=== PATIENT | female | born 2000 | race Two or more races ===

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

== ENCOUNTER → 2022-09-04 10:00 | Outpatient (CLI) | payer OTHER, SELFPAY ==
[2022-09-04 14:55] LABS: Basophils % 0.4 % (0.1-2.0); Eosinophils # 0.1 K/mm3 (0.0-0.4); Eosinophils % 1.2 % (0.1-12.0); Hematocrit 40.6 % (37.0-47.0); Lymphocytes # 2.1 K/mm3 (0.7-4.5); Lymphocytes % 32.6 % (10-50); Mean Corpuscular Hemoglobin 27.8 pg (27.0-31.2); Mean Corpuscular Volume 86.8 fl (81-99); Mean Platelet Volume 8.7 fl (7.4-10.4); Monocytes # 0.4 K/mm3 (0.1-1.0); Monocytes % 5.3 % (1.7-9.3); Neutrophils # 3.9 K/mm3 (1.8-7.8); Neutrophils % 60.4 % (37.0-80.0); Platelet Count 352 K/mm3 (142-424); Red Blood Count 4.67 M/mm3 (4.20-5.40); Red Cell Distribution Width 14.3 % (11.5-17.5); White Blood Count 6.5 K/mm3 (4.5-13.0)
[2022-09-04 15:24] LABS: Alanine Aminotransferase 18 U/L (12-78); Albumin Level 4.5 g/dl (3.5-5.0); Albumin/Globulin Ratio 1.6 (1.1-1.8); Alkaline Phosphatase 123 U/L (38-126); Anion Gap 14.2 mEq/L (5-15); Aspartate Amino Transferase 29 U/L (14-36); Bilirubin,Total 0.3 mg/dl (0.2-1.3); Blood Urea Nitrogen 11 mg/dl (7-17); Calcium 9.8 mg/dl (8.4-10.2); Carbon Dioxide 24 mmol/L (22.0-30.0); Chloride 106 mmol/L (98-107); Chol/HDL Ratio 2.9 (1-3.5); Cholesterol 163 mg/dl (140-200); Estimated Glomerular Filt Rate 127 ml/min (>60); GFR (African American) 154 ML/MIN (>60); Globulin 2.8 g/dL (1.3-3.2); Glucose 90 mg/dl (74-100); HDL Cholesterol 57 mg/dl (40-60); Potassium 5.2 mmoL/L (3.5-5.1); Sodium 139 mmol/L (136-145); Total Protein,Serum 7.3 g/dl (6.3-8.2); Triglycerides 189 mg/dl (30-150); VLDL Cholesterol 38 mg/dL (0-40)
[2022-09-04 15:27] LABS: Hemoglobin A1C 5.6 % (4.0-6.0)
[2022-09-04 15:35] LABS: 25-OH Vitamin D, Total 23.9 ng/mL (30-100)
[2022-09-04 15:40] LABS: Direct LDL Cholesterol 74.67 mg/dL (100-129)
[2022-09-04 15:50] LABS: Thyroid Stimulating Hormone 0.97 uIU/mL (0.465-4.68)
== END ==
PROVIDERS: PCP Student in an Organized Health Care Education/Training Program; Visit Provider Student in an Organized Health Care Education/Training Program
DX: Z00.00 Encounter for general adult medical examination without abnormal findings (principal); N92.0 Excessive and frequent menstruation with regular cycle; E55.9 Vitamin D deficiency, unspecified; E87.5 Hyperkalemia
CPT/HCPCS: 80053; 80061; 82306; 83036; 84443; 85025

== ENCOUNTER → 2022-11-05 10:00 | Outpatient (CLI) | payer OTHER, SELFPAY ==
--- NOTE | 2022-11-05 14:00 | US_ITS ---
FINAL REPORT CLINICAL HISTORY: abnormal uterine bleeding FINDINGS: Transvaginal sonographic images of the pelvis were obtained. The uterus is retroverted. There is a heterogeneous endometrial stripe measuring 1.5 cm. The ovaries are unremarkable. There is trace free fluid in the pelvis, probably physiologic. IMPRESSION: Endometrial thickening of uncertain significance, may be physiologic in a reproductive age patient. Reviewed, Interpreted and Dictated by Jonny Benton MD Transcribed by Bhavani Leroy Authenticated and [facility]
== END ==
PROVIDERS: PCP Student in an Organized Health Care Education/Training Program; Visit Provider Obstetrics & Gynecology
DX: N93.9 Abnormal uterine and vaginal bleeding, unspecified (principal)
CPT/HCPCS: 76830

== ENCOUNTER → 2023-01-21 11:03 | Outpatient (CLI) | payer OTHER, SELFPAY ==
--- NOTE | 2023-01-21 11:22 | XR_ITS ---
FINAL REPORT CLINICAL HISTORY: SOB FINDINGS: Two views of the chest were obtained. The heart size and pulmonary vascularity are within normal limits. The mediastinum is normal. No acute pulmonary abnormality is identified. There is no pneumothorax. The bony thorax is intact. IMPRESSION: No active cardiopulmonary disease. Reviewed, Interpreted and Dictated by Shawn Mccoy III, MD Transcribed by Cesia Houston Authenticated and [facility]
[2023-01-21 12:35] LABS: Basophils % 0.5 % (0.1-2.0); Eosinophils # 0.1 K/mm3 (0.0-0.4); Eosinophils % 1.2 % (0.1-12.0); Hematocrit 41.6 % (37.0-47.0); Hemoglobin 13.3 g/dL (12.2-16.2); Lymphocytes # 2.3 K/mm3 (0.7-4.5); Lymphocytes % 38.5 % (10-50); Mean Corpuscular HGB Conc 31.9 g/dL (31.8-35.4); Mean Corpuscular Hemoglobin 27.5 pg (27.0-31.2); Mean Corpuscular Volume 86.3 fl (81-99); Mean Platelet Volume 7.7 fl (7.4-10.4); Monocytes # 0.3 K/mm3 (0.1-1.0); Monocytes % 5.2 % (1.7-9.3); Neutrophils # 3.2 K/mm3 (1.8-7.8); Neutrophils % 54.6 % (37.0-80.0); Platelet Count 293 K/mm3 (142-424); Red Blood Count 4.82 M/mm3 (4.20-5.40); Red Cell Distribution Width 14.4 % (11.5-17.5); White Blood Count 5.9 K/mm3 (4.5-13.0)
[2023-01-26 03:42] LABS: D001-IgE D pteronyssinus <0.10 kU/L (Class 0); D002-IgE D farinae <0.10 kU/L (Class 0); E001-IgE Cat Dander <0.10 kU/L (Class 0); E005-IgE Dog Dander <0.10 kU/L (Class 0); E072-IgE Mouse Urine <0.10 kU/L (Class 0); G006-IgE Timothy Grass 0.11 kU/L (Class 0/I); Immunoglobulin E, Total 116 IU/mL (6-495); M001-IgE Penicillium chrysogen <0.10 kU/L (Class 0); M002-IgE Cladosporium herbarum <0.10 kU/L (Class 0); M003-IgE Aspergillus fumigatus 0.13 kU/L (Class 0/I); M006-IgE Alternaria alternata <0.10 kU/L (Class 0); T001-IgE Maple/Box Elder <0.10 kU/L (Class 0); T003-IgE Common Silver Birch <0.10 kU/L (Class 0); T006-IgE Cedar, Mountain 0.13 kU/L (Class 0/I); T007-IgE Oak, White 0.11 kU/L (Class 0/I); T008-IgE Elm, American <0.10 kU/L (Class 0); T010-IgE Walnut <0.10 kU/L (Class 0); T011-IgE Maple Leaf Sycamore <0.10 kU/L (Class 0); T014-IgE Cottonwood <0.10 kU/L (Class 0); T015-IgE Ash, White <0.10 kU/L (Class 0); T022-IgE Pecan, Hickory <0.10 kU/L (Class 0); T070-IgE White Mulberry <0.10 kU/L (Class 0); W001-IgE Ragweed, Short <0.10 kU/L (Class 0); W011-IgE Thistle, Russian <0.10 kU/L (Class 0); W014-IgE Pigweed, Common <0.10 kU/L (Class 0); W018-IgE Sheep Sorrel <0.10 kU/L (Class 0)
== END ==
PROVIDERS: PCP Emergency Medicine; Visit Provider Internal Medicine Pulmonary Disease
DX: R06.02 Shortness of breath (principal); J45.909 Unspecified asthma, uncomplicated; J30.9 Allergic rhinitis, unspecified
CPT/HCPCS: 36415; 71046; 82785; 85025; 86003

== ENCOUNTER → 2023-01-29 13:27 | Outpatient (CLI) | payer OTHER, SELFPAY | PROVIDERS: PCP Emergency Medicine; Visit Provider Internal Medicine Pulmonary Disease | DX: R06.02 Shortness of breath (principal) | CPT/HCPCS: 94762 ==

== ENCOUNTER → 2023-03-26 14:32 | Outpatient (CLI) | payer OTHER, SELFPAY | PROVIDERS: PCP Emergency Medicine; Visit Provider Internal Medicine Pulmonary Disease | DX: R06.02 Shortness of breath (principal); R06.09 Other forms of dyspnea | CPT/HCPCS: 94070; 95070; J7674 ==

== ENCOUNTER → 2023-08-18 11:23 | Outpatient (CLI) | payer OTHER, SELFPAY | PROVIDERS: PCP Student in an Organized Health Care Education/Training Program; Visit Provider Student in an Organized Health Care Education/Training Program | DX: M54.9 Dorsalgia, unspecified (principal) | CPT/HCPCS: 87086 ==

== ENCOUNTER → 2023-08-28 08:39 | Outpatient (CLI) | payer OTHER, SELFPAY | PROVIDERS: PCP Student in an Organized Health Care Education/Training Program; Visit Provider Student in an Organized Health Care Education/Training Program | DX: R11.0 Nausea (principal); B96.89 Other specified bacterial agents as the cause of diseases classified elsewhere | CPT/HCPCS: 87086 ==

== ENCOUNTER 2023-09-05 23:56 | Emergency (ER) | payer OTHER, SELFPAY ==
[2023-09-05 23:57] VITALS: BP 164/96; PULSE 110; RESP 16; TEMP 37; O2SAT 100; BMI 31.1
[2023-09-06 00:12] LABS: Coronavirus 19, PCR Not Detected (NotDetected); Influenza A, PCR Not Detected (NotDetected); Influenza B, PCR Not Detected (NotDetected)
[2023-09-06 00:22] LABS: Strep Scrn Group A (Rapid) Negative (Negative)
--- NOTE | 2023-09-06 00:37 | HMH.EDGENADL ---
Discharge Plan Disposition Patient Disposition: Home, Self-Care Condition: Good Prescriptions Prescriptions: New amoxicillin-pot clavulanate 875-125 mg tablet 1 tab PO BID Qty: 20 0RF No Action norethindrone-e.estradiol-iron [ (28)] 1.5 mg-30 mcg (21)/75 mg (7) tablet 1 tab PO DAILY Qty: 84 3RF fluticasone propionate [Flonase Allergy Relief] 50 mcg/actuation spray,suspension 1 spray intranasal BID 90 Days Qty: 16 3RF Rx Instructions: administer into each nostril ondansetron HCl 4 mg tablet 4 mg PO Q8H PRN (Reason: nausea and vomiting) Qty: 10 0RF albuterol sulfate [Proventil HFA] 90 mcg/actuation HFA aerosol inhaler 2 puff INHALATION Q6H Qty: 8.5 10RF Rx Instructions: administer with spacer cholecalciferol (vitamin D3) 25 mcg (1,000 unit) capsule 25 mcg PO DAILY Qty: 90 3RF Referrals Follow up/Referrals: Bety Key PA [Primary Care Provider] - See instructions Activity Restrictions/Add. Instructions Additional Instructions/Restrictions: You were evaluated in the emergency department today. You tested negative for strep. Your COVID and flu test are pending. You have an ear infection. We are providing you with an antibiotic for this. Take Tylenol and ibuprofen every 4-6 hours at home as needed for pain and fever. Return to the emergency department for new or worsening symptoms. Follow-up with your primary care provider over the next 3 days for reassessment. Clinical Impressions Clinical Impression: Upper respiratory infection, viral, Acute left otitis media Instructions Patient Instructions: DI for Otitis Media (Middle Ear Infection)-Child, DI for Viral Syndrome Discharge ED Provider: Shirley Barry General Adult HPI General Chief complaint: Upper Respiratory Infection Stated complaint: sore throat, cough, ear pain Time Seen by Provider: 09/06/23 00:01 Mode of Arrival: Ambulatory Source of Information: Patient Limitations: No Limitations Description of Symptoms (Recalled from ER Triage Doc. by RN): Presents to ED with c/o sore throat, runny nose, and ear pain that began last night. 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 Patient reports taking abx at 1600 that she brought with her from [place] but is unsure of the name. History of Present Illness HPI narrative: This patient is a 23-year-old female presenting to the emergency department for evaluation with concern for cough, congestion, and left ear pain that started on Thursday. Patient also complains of headaches and bodyaches. No other concerns noted at this time. She took Tylenol and ibuprofen in the morning, but has not had medication since then. Related Data Previous Rx's Medication Instructions Recorded albuterol sulfate 90 mcg/actuation 2 puff inhalation Q6H #8.5 grams 09/04/22 aerosol inhaler (Proventil HFA) cholecalciferol (vitamin D3) 25 25 mcg PO DAILY #90 caps 09/05/22 mcg (1,000 unit) capsule norethindrone 1.5 mg-ethinyl 1 tab PO DAILY #84 tabs 10/08/22 estradiol 30 mcg(21)/iron 75 mg(7) tablet (Junel FE 1.5/30 (28)) fluticasone propionate 50 1 spray intranasal BID allergy 03/26/23 mcg/actuation nasal symptoms 90 days #16 grams spray,suspension (Flonase Allergy Relief) ondansetron HCl 4 mg tablet 4 mg PO Q8H PRN nausea and 08/18/23 vomiting #10 tabs amoxicillin 875 mg-potassium 1 tab PO BID #20 tabs 09/06/23 clavulanate 125 mg tablet Allergies Allergy/AdvReac Type Severity Reaction Status Date / Time No Known Allergies Allergy Verified 08/28/23 09:55 [facility] Disclaimer: The information contained in this section may have been updated after the patient was seen, as this information can be updated by other users. Medical History Abnormal uterine bleeding Allergic rhinitis Asthma Dyspnea on exertion History of 2019 novel coronavirus disease (COVID-19) Loud snoring Nocturnal hypoxia Shortness of Breath
--- NOTE | 2023-09-06 00:41 | PC.NURSE ---
Rounded on patient; call light within reach of patient
[2023-09-06 00:49] VITALS: BP 145/88; PULSE 108; RESP 16; TEMP 37; O2SAT 99
== END 2023-09-06 00:51 | disposition home or self-care (01) ==
PROVIDERS: Emergency Provider Emergency Medicine; PCP Student in an Organized Health Care Education/Training Program
DX: H66.92 Otitis media, unspecified, left ear (principal); R51.9 Headache, unspecified; R05.9 Cough, unspecified; J06.9 Acute upper respiratory infection, unspecified; R07.0 Pain in throat; R09.81 Nasal congestion; J45.909 Unspecified asthma, uncomplicated
CPT/HCPCS: 87430; 87636; 99283

== ENCOUNTER → 2023-09-07 23:47 | Outpatient (CLI) | payer OTHER, SELFPAY | PROVIDERS: PCP Student in an Organized Health Care Education/Training Program; Visit Provider Student in an Organized Health Care Education/Training Program | DX: R30.0 Dysuria (principal) | CPT/HCPCS: 87086 ==

== ENCOUNTER 2024-02-11 10:07 | Outpatient (CLI) | payer OTHER, SELFPAY ==
[2024-02-11 17:48] LABS: Adenovirus,PCR Not Detected (NotDetected); Coronavirus 229E Not Detected (NotDetected); Coronavirus NL63 Not Detected (NotDetected); Coronavirus OC43 Not Detected (NotDetected); Human Metapneumovirus Not Detected (NotDetected); Influenza A, PCR Not Detected (NotDetected); Influenza AH1, 2009 Not Detected (NotDetected); Influenza AH1, PCR Not Detected (NotDetected); Influenza AH3,PCR Not Detected (NotDetected); Rhinovirus/Enterovirus Not Detected (NotDetected)
[2024-02-11 17:49] LABS: Bordetella Pertussis Not Detected (NotDetected); Chlamydophila Pneumoniae, PCR Not Detected (NotDetected); Coronavirus 19, PCR Not Detected (NotDetected); Influenza B, PCR Not Detected (NotDetected); Mycoplasma Pneumoniae, PCR Not Detected (NotDetected); Parainfluenza 1, PCR Not Detected (NotDetected); Parainfluenza 2, PCR Not Detected (NotDetected); Parainfluenza 3, PCR Not Detected (NotDetected); Parainfluenza 4, PCR Not Detected (NotDetected); Respiratory Syncytial Virus Not Detected (NotDetected)
[2024-02-11 18:13] LABS: Basophils % 0.4 % (0.1-2.0); Eosinophils # 0.1 K/mm3 (0.0-0.4); Hematocrit 40.5 % (37.0-47.0); Hemoglobin 13.3 g/dL (12.2-16.2); Lymphocytes # 1.8 K/mm3 (0.7-4.5); Lymphocytes % 25.2 % (10-50); Mean Corpuscular HGB Conc 32.7 g/dL (31.8-35.4); Mean Corpuscular Hemoglobin 29.2 pg (27.0-31.2); Mean Corpuscular Volume 89.3 fl (81-99); Mean Platelet Volume 8.2 fl (7.4-10.4); Monocytes # 0.4 K/mm3 (0.1-1.0); Monocytes % 6.2 % (1.7-9.3); Neutrophils # 4.7 K/mm3 (1.8-7.8); Neutrophils % 66.2 % (37.0-80.0); Platelet Count 303 K/mm3 (142-424); Red Blood Count 4.54 M/mm3 (4.20-5.40); Red Cell Distribution Width 14.5 % (11.5-17.5); White Blood Count 7.1 K/mm3 (4.8-10.8)
[2024-02-11 18:41] LABS: Alanine Aminotransferase 31 U/L (12-78); Albumin Level 4.3 g/dl (3.5-5.0); Albumin/Globulin Ratio 1.4 (1.1-1.8); Alkaline Phosphatase 104 U/L (38-126); Aspartate Amino Transferase 38 U/L (14-36); Bilirubin,Total 0.4 mg/dl (0.2-1.3); Blood Urea Nitrogen 9 mg/dl (7-17); Calcium 9.7 mg/dl (8.4-10.2); Carbon Dioxide 27 mmol/L (22.0-30.0); Chloride 103 mmol/L (98-107); Cholesterol 169 mg/dl (140-200); Estimated Glomerular Filt Rate 126 ml/min (>60); GFR (African American) 153 ML/MIN (>60); Glucose 94 mg/dl (74-100); HDL Cholesterol 83 mg/dl (40-60); Sodium 140 mmol/L (136-145); Total Protein,Serum 7.3 g/dl (6.3-8.2); Triglycerides 52 mg/dl (30-150); VLDL Cholesterol 10 mg/dL (0-40)
[2024-02-11 19:03] LABS: 25-OH Vitamin D, Total 28.5 ng/mL (30-100)
[2024-02-11 19:12] LABS: Thyroid Stimulating Hormone 1.12 uIU/mL (0.465-4.68)
[2024-02-11 20:19] LABS: Hemoglobin A1C 5.4 % (4.0-6.0)
[2024-02-11 20:52] LABS: Coronovirus HKU1,PCR Detected (NotDetected)
== END 2024-02-11 23:59 | disposition home or self-care (01) ==
LOC: LAB.DROPOF 02-12 10:07
PROVIDERS: PCP Student in an Organized Health Care Education/Training Program; Visit Provider Student in an Organized Health Care Education/Training Program
DX: J02.9 Acute pharyngitis, unspecified (principal); R05.1 Acute cough; R51.9 Headache, unspecified; R09.81 Nasal congestion; E55.9 Vitamin D deficiency, unspecified; B97.29 Other coronavirus as the cause of diseases classified elsewhere; Z13.1 Encounter for screening for diabetes mellitus; Z13.29 Encounter for screening for other suspected endocrine disorder; Z13.220 Encounter for screening for lipoid disorders
CPT/HCPCS: 80053; 80061; 82306; 83036; 84443; 85025; 87070; 87581; 87632; 87635; 87798

== ENCOUNTER 2024-12-20 12:47 | Outpatient (CLI) | payer OTHER, SELFPAY | END 2024-12-20 23:59 | disposition home or self-care (01) | LOC: RT 12:47 | PROVIDERS: Visit Provider Internal Medicine Pulmonary Disease | DX: J45.909 Unspecified asthma, uncomplicated (principal); G47.34 Idiopathic sleep related nonobstructive alveolar hypoventilation | CPT/HCPCS: 94060; 94618; 94726; 94729; 94762 ==

== ENCOUNTER 2025-01-05 12:22 | Outpatient (CLI) | payer OTHER, SELFPAY ==
--- NOTE | 2025-01-05 | CA_ITS ---
APPROVED REPORT EXAM: Comprehensive 2D, Doppler, and color-flow Echocardiogram Manager Critical Care Unit: Jennifer Vazquez RT(R) Ht: 5 ft 1 in Wt: 180lbs BSA: 1.81 BP: 127/70 mmHg Indications: asthma, SOA Echo Enhancing Agent Indication: Rule out Shunt Agent(s) / Amount(s) Used: Agitated Saline 20 cc 2D Dimensions LVEF (Tabares's) 60.80 % F: 54 - 74 LV Volume 103.50 mL F: 46 - 106 LV Volume Index 57.2 mL/m2 F: 29 - 61 LA Volume 23.70 mL LA Volume Index 13.09 mL/m2 (M/F) 16-34 EF AP4 56.50 % EF AP2 64.8 % EF BP 60.8 % GL Strain -21.6 % M-Mode Dimensions RVDd 2.61 cm (0.9-2.6) LA Diam 2.99 cm (1.9-4.0) LVDd 4.92 cm (3.5-5.7) LVDs 3.61 cm (3.5-5.7) IVSd 0.64 cm (0.6-1.1) PWd 0.77 cm (0.6-1.1) EF (Teich) 51.90% FS 26.60% EDV (Teich) 113.90 mL TAPSE 2.30 (<1.7) ESV (Teich) 54.80 mL LV Diastology E Decel Time 183 (160-240 msec) E/A Ratio 2.3 Mitral Valve MV E Max Michele. 124.0 (40-130 cm/s) MV A Velocity 55.0 (40-130 cm/s) E/A Ratio 2.27 MV PHT 54.0 ms Left Ventricle The left ventricle is normal size. The left ventricular systolic function is normal. The left ventricular ejection fraction is within the normal range. There is normal left ventricular wall thickness. There is normal LV segmental wall motion. The left ventricular diastolic function is normal. LVEF is 55%. Right Ventricle The right ventricle is normal size. The right ventricular systolic function is normal. Atria The left atrium size is normal. The right atrium size is normal. There is no Doppler evidence of interatrial shunt. Agitated saline administration demonstrates no evidence of interatrial shunt. Aortic Valve Aortic valve opens well. There is no aortic valvular stenosis. No aortic regurgitation is present. Mitral Valve The mitral valve is normal in structure. No evidence of mitral valve stenosis. Trace mitral regurgitation. Tricuspid Valve Tricuspid valve is grossly normal in structure and function. Trace tricuspid regurgitation. There is insufficient TR jet to estimate RVSP. Pulmonic Valve The pulmonary valve is normal in structure. Trace pulmonic regurgitation. Great Vessels The aortic root is normal in size. IVC is normal in size and collapses >50% with inspiration. Pericardium There is no pericardial effusion. Other Information Study Quality: Adequate Conclusion Normal biventricular systolic function. No significant valvular stenosis or regurgitation. There is no Doppler evidence of interatrial shunt. Agitated saline administration demonstrates no evidence of interatrial shunt. Electronically signed by : India Olea MD 01/09/2025 12:41:44
== END 2025-01-05 23:59 | disposition home or self-care (01) ==
LOC: RT 12:23
PROVIDERS: Visit Provider Internal Medicine Pulmonary Disease
DX: R06.02 Shortness of breath (principal); R94.2 Abnormal results of pulmonary function studies
CPT/HCPCS: 93306

== ENCOUNTER 2025-09-22 09:18 | Outpatient (CLI) | payer OTHER, SELFPAY ==
--- OUTSIDE RECORDS SUMMARY | 2025-01-02 09:45 | XMS_ITS ---
Author Organization [facility] Address [address] [place] [id number] Care Team Providers Care Hog Counter Name Role Phone Alycia Gutierres [facility] [phone] REASON FOR VISIT Not Feeling Well Encounters Encounter Location Date Provider Diagnosis [address] [phone] 01/02/2025 Alycia Gutierres Plan Of Treatment No Information Progress Notes * Natasha MINAYADOB:[birth year] (25 yo F)Acc No.[id number]:01/02/2025 Patient: Natasha AGUILAR Provider: Kaitlin Gutierres APRN :2000 A ge:24 Y S ex:Female Date:01/02/2025 External Visit ID:[id number] Address:[address] [facility] Subjective: * Chief Complaints: * 1 . Not Feeling Well. * Medical History: Objective: * Vitals: Assessment: Plan: * Treatment: * Billing Information: * Visit Code: * Procedure Codes: Care Plan Details* * Electronic signature of Stephany Gutierres APRN on 09/22/2025 at 08:20 AM MAGICIAN HELPER Sign off status: Pending * Provider: Kaitlin Gutierres APRN Date: 0 01/02/2025 Generated for Xochilt campos/Be/eTransmitting on: 11/23/2024 08:20 AM MAGICIAN HELPER
--- OUTSIDE RECORDS SUMMARY | 2025-06-21 11:30 | XMS_ITS ---
Author Organization [facility] ([facility]) Address [address] [place] [id number] Care Team Providers Care Cotton Grower Name Role Phone Natasha Anderson Unavailable [phone] REASON FOR VISIT Flu Encounters Encounter Location Date Provider Diagnosis [address] [place] [id number] 06/21/2025 Natasha Anderson Plan Of Treatment No Information Progress Notes * Natasha PEDERSENDOB:[birth year] (25 yo F)Acc No.[id number]:06/21/2025 Progress Note Patient: Geraldine AGUILARnifer Provider: LORA Segura :2000 A ge:24 Y S ex:Female Date:06/21/2025 External Visit ID:[id number] Address:[address] [facility] Subjective: * Chief Complaints: * 1 . Flu. * Medical History: Objective: * Vitals: Assessment: Plan: * Treatment: * Billing Information: * Visit Code: * Procedure Codes: Care Plan Details* * Electronic signature of Chrystal Anderson APRN on 09/22/2025 at 08:20 AM SHINE WORKER Sign off status: Pending * Provider: LORA Segura Date: 0 06/21/2025 Generated for Xochilt campos/Be/eTransmitting on: 1 11/23/2024 08:20 AM SHINE WORKER
--- OUTSIDE RECORDS SUMMARY | 2025-09-22 09:20 | XMS_ITS | Continuity of Care Document ---
Author Organization [facility] Address [address] [place] [address] Phone Care Team Providers Care Dielectric Testing Machine Operator Name Role Phone Unavailable Primary Care Provider Unavailabl e Encounters Date Type Department Care Team Description 04/20/2024 Travel 04/20/2024 12:07 PM EDT - 04/20/2024 2:57 PM EDT [facility] [address] [place] [address] Bruce Patten, Facial swelling (Primary Dx); Periorbital edema of both eyes Discharge Disposition: Home or Self Care Allergies No known active allergies Medications No known medications Social History Smoking Status as of 09/22/2025 Tobacco Use Types Packs/Day Years Used Date Smoking Tobacco: Never Assessed Sex and Gender Information Value Date Recorded Sex Assigned at Not on file Legal Sex Female 12:01 PM EDT Gender Identity Not on file Sexual Orientation Not on file Last Filed Vital Signs Vital Sign Reading Time Taken Comments Blood Pressure 120/70 04/20/2024 2:56 PM EDT Pulse 70 04/20/2024 2:56 PM EDT Temperature 36.8 C (98.2 F) 04/20/2024 12:09 PM EDT Respiratory Rate 18 04/20/2024 2:56 PM EDT Oxygen Saturation 100% 04/20/2024 2:56 PM EDT Inhaled Oxygen Concentration - - Weight 78 kg (172 lb) 04/20/2024 12:04 PM EDT Height 157.5 cm (5' 2 ) 04/20/2024 12:04 PM EDT Body Mass Index 31.46 04/20/2024 12:04 PM EDT Plan of Treatment Not on file Procedures Procedure Name Priority Date/Time Associated Diagnosis Comments URINALYSIS REFLEX STAT 04/20/2024 2:2 4 PM EDT UA W/REFLEX TO CULTURE STAT 2:24 PM EDT EXTRA CHILDS URINE CX STAT 04/20/2024 2 :24 PM EDT VA US LOWER EXTREMITY VENOUS LEFT STAT 04/20/2024 1:49 PM EDT COMPREHENSIVE METABOLIC PANEL STAT 04/20/2024 1:23 PM EDT HUMAN CHORIONIC GONADOTROPIN QUANTITATIVE STAT 04/20/2024 1:22 PM EDT CBC STAT 04/20/2024 1:22 PM EDT Results * URINALYSIS REFLEX (04/20/2024 2:24 PM EDT) UA Color Yellow 04/20/2024 2:32 PM EDT [facility] UA Appear Clear Clear 04/20/2024 2:32 PM EDT [facility] UA Glucose Negative Negative mg/dL 04/20/2024 2:32 PM EDT [facility] UA Ketones Negative Negative mg/dL 04/20/2024 2:32 PM EDT [facility] UA Blood Negative Negative 04/20/2024 2:32 PM EDT [facility] UA pH 7.0 5.0 - 8.0 pH 04/20/2024 2:32 PM EDT [facility] UA Protein Negative Negative mg/dL 04/20/2024 2:32 PM EDT [facility] UA Urobilinogen 0.2 <=1 mg/dL 2:32 PM EDT [facility] UA Bili Negative Negative 04/20/2024 2:32 PM EDT [facility] UA Nitrite Negative Negative 04/20/2024 2:32 PM EDT [facility] UA Leuk Est Negative Negative 04/20/2024 2:32 PM EDT [facility] UA Spec Grav 1.015 1.001 - 1.035 no units 04/20/2024 2:32 PM EDT [facility] Comment:Reference range marion d for random specimens only. Urine URINE SPECIMEN COLLECTION, CLEAN CATCH / Unknown 04/20/2024 2:24 PM EDT 04/20/2024 2:30 PM EDT Bruce Patten URINE ORDERABLES Final Result Performing Organization Address City/[facility]/ZIP Co de Phone Number [facility] [address] [place] [address] * EXTRA CHILDS URINE CX (04/20/2024 2:24 PM EDT) Urine URINE SPECIMEN COLLECTION, CLEAN CATCH / Unknown 04/20/2024 2:24 PM EDT 04/20/2024 2:30 PM EDT Bruce Patten DO MICROBIOLOGY - GENERAL ORDERA BLES Final Result Performing Organization Address [facility] Co de Phone Number [facility] [address] [place] [address] * SD US LOWER EXTREMITY VENOUS LEFT (04/20/2024 1:49 PM EDT) Anatomical Region Laterality Modality Vascular, Thigh, Leg Electrocard iography 04/20/2024 1:31 PM EDT Impressions 04/20/2024 10:06 PM EDT Conclusions * No evidence of deep vein thrombosis identified in the left lower extremity. * Normal Doppler characteristics of spontaneous, phasic flow and augmentation to distal compression are demonstrated throughout the deep venous system of the left lower extremity. * No evidence of superficial vein thrombosis identified in the left lower extremity. * No evidence of thrombosis is noted in the contralateral right common femoral vein. Narrative Procedure Note Fitz Moss MD - 04/20/2024 IMPRESSION Conclusions * No evidence of deep vein thrombosis identified in the left lower extremity. * Normal Doppler characteristics of spontaneous, phasic flow and augmentation to distal compression are demonstrated throughout the deepvenous system of the left lower extremity. * No evidence of superficial vein thrombosis identified in the leftlower extremity. * No evidence of thrombosis is noted in the contralateral right common femoral vein. Bruce Anusha Patten DO [facility] VASCULAR ORDERABLES Final Result * COMPREHENSIVE METABOLIC PANEL (04/20/2024 1:23 PM EDT) Sodium 137 136 - 145 mmol/L 04/20/2024 1:47 PM EDT [facility] Potassium 4.0 3.5 - 5.0 mmol/L 04/20/2024 1:47 PM [facility] Chloride 103 98 - 107 mmol/L 04/20/2024 1:47 PM [facility] Total CO2 26 22 - 29 mmol/L 04/20/2024 1:47 PM [facility] Anion Gap 8 7 - 16 mmol/L 04/20/2024 1:47 PM [facility] Calcium 8.9 8.6 - 10.4 mg/dL 04/20/2024 1:47 PM [facility] Glucose Lvl 84 70 - 99 mg/dL 04/20/2024 1:47 PM [facility] BUN 7 6 - 20 mg/dL 04/20/2024 1:47 PM [facility] Creatinine 0.58 0.51 - 1.30 mg/dL 04/20/2024 1:47 PM [facility] Albumin 4.1 3.5 - 5.2 gm/dL 04/20/2024 1:47 PM [facility] Total Protein 7.1 6.4 - 8.3 gm/dL 04/20/2024 1:47 PM [facility] Bili Total 0.3 0.2 - 1.3 mg/dL 04/20/2024 1:47 PM [facility] ALT 21 <=41 U/L 04/20/2024 1:47 PM [facility] AST 24 <=40 U/L 04/20/2024 1:47 PM [facility] Alk Phos 91 36 - 123 U/L 04/20/2024 1:47 PM [facility] eGFR (CKD-EPIcr 2020) 131 >=60 mL/min/1.7 3 m2 04/20/2024 1:47 PM EDT [facility] Comment:Estimated GFR was ca lculated using the CKD-EPIcr (2020) equation refit without race. The equation is recommended by the National Kidney Foundation - [place] [employer] Nephrology Task Force. Blood VENOUS BLOOD / Unknown Venipuncture / Unknown 04/20/2024 1:23 PM EDT 04/20/2024 1:26 PM EDT us Bruce Patten DO CHEMISTRY ORDERABLES Final Re sult [facility] [address] [place] [address] * CBC (04/20/2024 1:22 PM EDT) WBC 6.2 3.7 - 10.3 x10(3)/mcL 04/20/2024 1:30 PM EDT [facility] RBC 4.74 3.90 - 5.20 x10(6)/mcL 04/20/2024 1:30 PM EDT [facility] Hgb 13.6 11.2 - 15.7 g/dL 04/20/2024 1:30 PM EDT [facility] Hct 41.0 34.0 - 45.0 % 04/20/2024 1:30 PM EDT [facility] MCV 86.5 80.0 - 100.0 fL 04/20/2024 1:30 PM EDT [facility] MCH 28.7 26.0 - 34.0 pg 04/20/2024 1:30 PM EDT [facility] MCHC 33.2 30.7 - 35.5 g/dL 04/20/2024 1:30 PM EDT [facility] RDW 13.2 <=14.9 % 04/20/2024 1:30 PM EDT [facility] Platelet 313 155 - 369 x10(3)/mcL 04/20/2024 1:30 PM EDT [facility] MPV 9.4 8.8 - 12.5 fL 04/20/2024 1:30 PM EDT [facility] Blood VENOUS BLOOD / Unknown Venipuncture / Unknown 04/20/2024 1:22 PM EDT 04/20/2024 1:26 PM EDT Bruce Patten DO HEMATOLOGY ORDERABLES Final R esult Performing Organization Address [facility] de Phone Number [facility] [address] [place] [address] * HUMAN CHORIONIC GONADOTROPIN QUANTITATIVE (04/20/2024 1:22 PM EDT) [facility] Hcg Quant <1 <5 mIU/mL 04/20/2024 1:48 PM EDT [facility] Blood VENOUS BLOOD / Unknown Venipuncture / Unknown 04/20/2024 1:22 PM EDT 04/20/2024 1:26 PM EDT Narrative [facility] - 04/20/2024 1:48 PM EDT Female (non-): 0-4.9 mIU/mL Female (postmenopausal): 0-8.1 mIU/mL Indeterminate values for (e.g., 5-25 mIU/mL) may be confirmed with a repeat test in 48-72 hours. Values in should double every 2-3 days for the first six weeks. Ingestion of shemar doses of biotin (>5 mg/day) taken within 8 hours of drawing blood sample can interfere with this immunoassay test. Bruce Patten DO CHEMISTRY ORDERABLES Final Re sult Performing Organization Address [facility] Co de Phone Number [facility] [address] [place] [address] Visit Diagnoses Diagnosis Start Date Facial swelling Swelling, mass, or lump in head and neck 04/20/2024 Periorbital edema of both eyes 04/20/2024
--- OUTSIDE RECORDS SUMMARY | 2025-09-22 09:20 | XMS_ITS | Patient Health Record ---
Author Organization [facility] Address [facility] [address] [place] [address] Care Team Providers Care Opto Mechanical Technician Name Role Phone Natasha Anderson Unavailable [phone] Alycia Gutierres Unavailable [phone] Reason For Referral No Information Plan Of Treatment No Information
[2025-09-22] MEDS: ALBUTEROL 0.083% 2.5 MG/3 ML NEB IH (09:56)
--- NOTE | 2025-09-22 10:01 | PC.NURSE ---
PFT and 6 Minute Walk Test completed without incident. Albuterol 0.083% given via HHN, per written protocol, Pt tolerated tx well.
== END 2025-09-22 23:59 | disposition home or self-care (01) ==
LOC: RT 09:19
PROVIDERS: PCP Student in an Organized Health Care Education/Training Program; Visit Provider Internal Medicine Pulmonary Disease
DX: R06.09 Other forms of dyspnea (principal); R94.2 Abnormal results of pulmonary function studies
CPT/HCPCS: 94060; 94618; 94726; 94729